=== PATIENT | female | born 1965 | race Caucasian/White ===

== ENCOUNTER 2018-09-12 18:49 | Observation (INO) | payer BC ==
[2018-09-12] MEDS ORDERED: SODIUM CHLORIDE 1,000 ML IV ONE (18:54)
--- NOTE | 2018-09-12 18:54 | PDOC ---
Rapid Medical Evaluation Time Seen by Provider: 09/12/18 18:50 Medical Evaluation: 09/12/18 18:51 I have performed a brief in-person evaluation of this patient. The patient presents with a chief complaint of: sent by for TIA w/u Pertinent physical exam findings: [place] negative. Gait steady I have ordered the following: labs, urine, CTH The patient will proceed to the ED for further evaluation. Discharge Disposition - Diagnosis Dizziness - Referrals - Patient Instructions - Post Discharge Activity
[2018-09-12 19:54] LABS: BASO % 0.6 % (0-2.0); EOS % 0.8 % (0-4.5); HEMATOCRIT 39.4 % (32.4-45.2); HEMOGLOBIN 13.6 GM/dL (10.7-15.3); LYMPH % 31.3 % (8-40); MCH 31.8 pg (25.7-33.7); MCHC 34.7 g/dl (32.0-36.0); MEAN CELL VOLUME 91.8 fl (80-96); MEAN PLT VOLUME 8.9 fl (7.5-11.1); MONO % 8.5 % (3.8-10.2); NEUT % 58.8 % (42.8-82.8); PLATELET COUNT 295 K/MM3 (134-434); RBC 4.29 M/mm3 (3.60-5.2); RDW 13.2 % (11.6-15.6); WHITE BLOOD COUNT 10.1 K/mm3 (4.0-10.0)
--- NOTE | 2018-09-12 20:16 | PDOC ---
History of Present Illness - General Chief Complaint: Lightheaded Stated Complaint: sent by PCP nausea, dizziness Time Seen by Provider: 09/12/18 18:50 History Source: Patient Exam Limitations: No Limitations - History of Present Illness Initial Comments: Pt is a 52 yo F, with PMH of presenting via EMS from [facility] ([facility]) after acute episode of confusion, vertigo, and headache. Pt is accompanied by her . Pt states around 12:30 today (7 hours prior to presentation), she was on the computer and had onset of blurry vision and vertigo like "the room was spinning". The pt states she felt "light-headed" for about 30 seconds, but her states the pt was awake, but would not respond to verbal stimuli for almost 20-30 minutes. He said the pts eyes deviated to the L, and she would continue to turn her head to the L when he would try to get her attention. The pt then responded again, and was able to ambulate but "felt like she was leaning to the L side and didn't feel comfortable turning her head to the R side ". She felt nausea during this time but had no vomiting, and also had a R sided headache. She did not have any LOC or generalized shaking. Pt took was then sleeping intermittently for about 5 hours and last ate some pasta about 3 hours prior to presentation. Pt [facility] who immediately sent her to the ER after hearing the story (Dr. Armendariz). Pt denies any recent fevers/chills, syncope, chest pain, palpitations, SOB, vomiting, abdominal pain, urinary symptoms, diarrhea/constipation, or leg swelling. Bedside BGM 93. Pt states they recently changed her depression medication from Wellbutrin to Aplenzin about 1 week ago, and denies alcohol use. Social: Pt denies any cigarette, alcohol, or drug use. Pt denies any recent travel or sick contacts. Surgical: no relevant history. Family: no relevant history. 09/12/18 21:10 09/12/18 22:47 NIH Stroke Scale - Last Known Well Date/Time & Onset Date Last Known Well: 09/12/18 Time Last Known Well: 12:30 - Initial Evaluation Level of consciousness: Alert Ask patient the month and their age: Answers both correctly Ask patient to open & close eyes; make fist and let go: Obeys both correctly Best gaze (horizontal eye movement): Normal Visual field testing: No visual field loss Facial paresis (Show teeth/raise eyebrows/close eyes tight): Normal symmetrical movement Motor Function: Left Arm: Normal Motor Function: Right Arm: Normal (extends arm 90 (or 45) degrees for 10 seconds without drift Motor Function: Left Leg: Normal (extends leg 30 degrees for 5 seconds without drift) Motor Function: Right Leg: Normal (extends leg 30 degrees for 5 seconds without drift) Limb Ataxia: No ataxia Sensory(Use pinprick test arms,legs,trunk,face/side to side): Normal Best language (Describe picture, name items, read sentences): No Aphasia Dysarthria (read several words): Normal articulation Extinction and Inattention: No abnormality - Total Score NIH Stroke Scale Score: 0 Past History - Travel Traveled outside of the country in the last 30 days: No Close contact w/someone who was outside of country & ill: No - Past Medical History Allergies/Adverse Reactions: Allergies Allergy/AdvReac Type Severity Reaction Status Date / Time No Known Allergies Allergy Verified 09/12/18 18:54 COPD: No Hypercholesterolemia: Yes - Surgical History Cardiac Surgery: No Neurologic Surgery: No - Suicide/Smoking/Psychosocial Hx Smoking History: Never smoked Information on smoking cessation initiated: No Hx Alcohol Use: No Drug/Substance Use Hx: No Review of Systems - Review of Systems Able to Perform ROS?: Yes Is the patient limited Uzbek proficient: No Constitutional: Yes: Weight Stable. No: Chills, Diaphoresis, Fever, Loss of Appetite, Malaise, Weakness HEENTM: Yes: See HPI, Blurred Vision, Other (neglect of R side during symptoms, see HPI). No: Double Vision, Nose Congestion, Tinnitus, Throat Pain, Throat Swelling Respiratory: No: Cough, Orthopnea, Shortness of Breath Cardiac (ROS): No: Chest Pain, Edema, Irregular Heart Rate, Lightheadedness, Palpitations, Syncope, Chest Tightness ABD/GI: No: Constipated, Diarrhea, Nausea, Poor Appetite, Poor Fluid Intake, Vomiting : No: Burning, Dysuria, Pain, Urgency Musculoskeletal: No: Back Pain, Joint Pain, Muscle Pain, Muscle Weakness Integumentary: No: Rash Neurological: Yes: See HPI (neglect of R side, R-sided headache, looking towards and leaning towards L side), Headache, Paresthesia, Unsteady Gait, Ataxia. No: Numbness, Pre-Existing Deficit, Seizure, Tremors, Weakness, Dizziness Psychiatric: Yes: Depression. No: Sleep Pattern Change, Change in Appetite Endocrine: No: Increased Urine, Change in Weight Hematologic/Lymphatic: No: Anemia, Blood Clots ("collection of blood vessels" in liver, stable via MRI), Easy Bleeding, Easy Bruising All Other Systems: Reviewed and Negative *Physical Exam - Vital Signs Last Vital Signs Temp Pulse Resp BP Pulse Ox 98 F 79 18 133/83 97 09/12/18 18:52 09/12/18 18:52 09/12/18 18:52 09/12/18 18:52 09/12/18 18:52 - Physical Exam Comments: Vitals stable, pt afebrile. Pt in NAD, overweight body habitus. Pt alert and oriented x3. jawbone breaker generally intact, muscular strength and sensation intact. Cerebellar exam ( finger to nose, heel to byrnes) WNL, Romberg and gait WNL. No neglect of either side. No midline spinal tenderness, step-offs, or crepitus. Head normocephalic, atraumatic. Eyes PERRLA, EOMI. Oropharynx without erythema or exudates, no LAD b/l. No nasal congestion, hearing intact. Clear heart sounds, S1/S2, no JVD, b/l pedal edema, or heart murmur. Clear lung sounds, no respiratory distress, wheezes, crackles, or accessory muscle use. No abdominal or CVA tenderness to palpation, no rebound, no guarding. Abdomen soft, non-distended, and with normoactive bowel sounds. Skin without jaundice or rash. 09/12/18 20:08 09/12/18 20:42 ED Treatment Course - LABORATORY CBC & Chemistry Diagram: 09/12/18 19:07 09/12/18 19:07 - ADDITIONAL ORDERS Additional order review: Laboratory Results 09/12/18 19:26 POC Glucometer 93 09/12/18 09/12/18 19:26 19:07 RBC 4.29 MCV 91.8 MCHC 34.7 RDW 13.2 MPV 8.9 Neutrophils % 58.8 Lymphocytes % 31.3 Monocytes % 8.5 Eosinophils % 0.8 Basophils % 0.6 POC Glucometer 93 - Medications Given in the ED: ED Medications Discontinued Medications Generic Name Dose Route Start Last Admin Trade Name Misty PRN Reason Stop Dose Admin Sodium Chloride 1,000 mls @ 1,000 mls/hr 09/12/18 18:54 09/12/18 19:40 Normal Saline - IV 09/12/18 19:53 1,000 mls/hr .Q1H ONE Administration Medical Decision Making - Medical Decision Making Pt was seen at bedside, also will be seen by attending Dr. Mohamud. Pt presenting via EMS from [facility] ([facility]) after acute episode of confusion, vertigo, and headache. Pt is accompanied by her . Pt states around 12:30 today (7 hours prior to presentation), she was on the computer and had onset of blurry vision and vertigo like "the room was spinning". The pt states she felt "light-headed" for about 30 seconds, but her states the pt was awake, but would not respond to verbal stimuli for almost 20-30 minutes. He said the pts eyes deviated to the L, and she would continue to turn her head to the L when he would try to get her attention. The pt then responded again, and was able to ambulate but "felt like she was leaning to the L side and didn't feel comfortable turning her head to the R side". She felt nausea during this time but had no vomiting, and also had a R sided headache. She did not have any LOC or generalized shaking. Pt took was then sleeping intermittently for about 5 hours and last ate some pasta about 3 hours prior to presentation. Pt then presented to the [facility]gent [facility] who immediately sent her to the ER after hearing the story (Dr. Armendariz). Pt denies any recent fevers/chills, syncope, chest pain, palpitations, SOB, vomiting, abdominal pain, urinary symptoms, diarrhea/constipation, or leg swelling. Bedside BGM 93. Considering TIA vs new onset seizure (absence) vs hypoglycemic episode vs electroyte abnormalities vs medication side effects (vasoconstriction?) vs head bleed. Ordered work-up including CBC, CMP, lipid panel, cardiac profile, ECG, chest x- ray, UA, non-contrast head CT (r/o ischemia, bleed). Provided 1 L IV NS. Will continue to reassess pt and monitor for symptomatic improvement. ECG: NSR (HR 75), intervals WNL (MS 144, QRS 76, QTc 408). No TWIs or significant ST segment changes. No prior ECG for comparison. 09/12/18 20:58 CBC and CMP WNL Lipid panel elevated (HDL and LDL, although pt not fasting). Trop <.02 test negative -- pt was taken for chest x-ray and CT. 09/12/18 21:04 CT head shows no acute pathology. Paged neurology on-call (Dr. Casanova) and hospitalist team for admission as pt needs further work-up. 09/12/18 22:16 Dr. Casanova suggested starting statin therapy and MRI brain without contrast. Providing 650 mg PO tylenol and 20 mg PO atorvastatin. Pending hospitalist team call-back. 09/12/18 22:[address] Elmore. Pt resting comfortably. 09/12/18 23:12 *DC/Admit/Observation/Transfer Diagnosis at time of Disposition: TIA (transient ischemic attack) - Discharge Dispostion Condition at time of disposition: Stable Decision to Admit order: Yes - Referrals Referrals: Leesa Reyes [Primary Care Provider] - - Patient Instructions - Post Discharge Activity
[2018-09-12 20:20] LABS: ALBUMIN 3.7 g/dl (3.4-5.0); ALK PHOS 72 U/L (45-117); ANION GAP 4 MMOL/L (8-16); BILIRUBIN,TOTAL 0.3 mg/dL (0.2-1); BLOOD UREA NITROGEN 15 mg/dL (7-18); CALCIUM 9.2 mg/dL (8.5-10.1); CHLORIDE 108 mmol/L (98-107); CO2 25 mmol/L (21-32); CREATININE 0.8 mg/dL (0.55-1.3); GLUCOSE,RANDOM 88 mg/dL (74-106); POTASSIUM 4.2 mmol/L (3.5-5.1); SGOT/AST 13 U/L (15-37); SGPT/ALT 27 U/L (13-61); SODIUM 136 mmol/L (136-145); TOT PROT 7.1 g/dl (6.4-8.2)
[2018-09-12 20:32] LABS: PROTHROMBIN TIME (PATIENT) 11.8 SEC (9.7-13.0)
[2018-09-12 20:51] LABS: CHOLESTEROL 248 mg/dL (50-200); HDL CHOLESTEROL 73 mg/dL (40-60); TRIGLYCERIDES 158 mg/dL (0-150)
--- NOTE | 2018-09-12 21:01 | PDOC ---
Documentation entered by Janes Christianson SCRIBE, acting as scribe for Danny Mohamud MD. Attending Attestation - Resident Resident Name: Renetta Raines - ED Attending Attestation I have performed the following: I have examined & evaluated the patient, The case was reviewed & discussed with the resident, I agree w/resident's findings & plan, Exceptions are as noted - HPI HPI: 09/12/18 20:38 Patient is a 52 year old female with a significant past medical history of who presents to the ED with complaints of dizziness. Patient reports being sent to the ED for further evaluation by urgent care after experiencing an episode of confusion with associated dizziness that occurred earlier today at noon. She reports beginning to feel like the room is spinning before experiencing confusion that she states felt like 30 seconds but was told by her , it was 30 minutes. Pt's also states her eyes seemed to be deviating to the left and she would not look to her right. Patient reports attempting to walk shortly after and noticed she was favoring her left side, stating it felt wrong to walk towards the right side. Denies chest pain, sob. Deneis nausea, vomiting. Denies fevers, chills. Denies diarrhea, constipation. Denies dysuria, hematuria. Denies contact with sick individuals, out of state travelling. Denies any other symptoms. Allergies: None Social history: No smoking. No illicit drugs. No alcohol. Surgical history: None PMD: Dr. Reyes - Physicial Exam PE: 09/12/18 20:59 agree with resident exam - Medical Decision Making 09/12/18 20:59 52yo F presents to the ED with a resolved episode of confusion, eye deviation, gait instability 7 hours prior to arrival to ED. Vitals wnl Exam wnl, NIHSS 0 DDx includes TIA vs partial seizure vs atypical migraine vs medication side effect (pt started on new depression medication 1 week ago) Plan for labs, CTH, anticipate admission 09/12/18 22:10 CTH neg, labs wnl. Per neuro, rec MRI, admission Pt admitted to hospital for further mgmt/dispo Case discussed in detail with admitting physician including history, physical exam and ancillary studies. Admitting physician has assumed care for the patient, will follow all pending diagnostics and will complete the evaluation and treatment. Danny Mohamud MD: This documentation has been prepared by the Sammy mckeon Matthew, SCRIBE, under my direction and personally reviewed by me in its entirety. I confirm that the documentation accurately reflects all work, treatment, procedures, and medical decision making performed by me.
[2018-09-12 22:31] LABS: EPI CELLS 1.2 /HPF (0-5/HPF); HCG,QUALITATIVE URINE Negative; URINE APPEARANCE CLEAR; URINE BACTERIA 46.7 /hpf (NEGATIVE); URINE BILIRUBIN NEGATIVE (NEGATIVE); URINE CASTS 0 /lpf (0-8); URINE COLOR YELLOW; URINE GLUCOSE (UA) NEGATIVE (NEGATIVE); URINE KETONE NEGATIVE (NEGATIVE); URINE LEUK ESTERASE TRACE (NEGATIVE); URINE NITRITE NEGATIVE (NEGATIVE); URINE PROTEIN NEGATIVE (NEGATIVE); URINE RBC 3 /hpf (0-4); URINE UROBILINOGEN 0.2 mg/dL (0.2-1.0); URINE WBC 0 /hpf (0-5)
[2018-09-12] MEDS ORDERED: ACETAMINOPHEN 325 MG TABLET (FP) PO ONE (22:34)
[2018-09-12] MEDS ORDERED: ATORVASTATIN CA 20 MG TABLET (FP) PO ONE (22:38)
[2018-09-12] MEDS ORDERED: ACETAMINOPHEN 325 MG TABLET (FP) ONE (22:39)
[2018-09-12] MEDS ORDERED: ATORVASTATIN CA 10 MG TABLET (FP) ONE (22:55)
[2018-09-13] MEDS ORDERED: ASPIRIN 81 MG CHEWABLE TABLETS PO ONE (00:30)
--- NOTE | 2018-09-13 00:54 | HP ---
CHIEF COMPLAINT: dizziness PCP: HISTORY OF PRESENT ILLNESS: 52 y/o F with PMH asthma, depression, HLD, childhood sz, who presented to the ED for dizziness which occurred starting at 12:30pm yesterday afternoon. Pt was sitting at her desk, typing on her computer when she suddenly felt warm, diaphoretic, and as if she was about to vomit. States that she subsequently ambulated to and from the bathroom, however at this point she had forgotten what had occurred next. was with her at the time and told her that during this time, she was not verbally responsive for approx five minutes, after which time, pt came to. Afterward, the pt was very somnolent and had a generalized STINSON. Additionally, she states that when she looked at her , she could only see him from the L side of her visual field, with neglect on the right. Due to increasing concern, he decided to take her to [facility] for further evaluation and she was referred to R for further evaluation. During my examination, pt endorses mild dizziness and vertigo when standing. Denies fever, chills, SOB, recent illnesses, or changes in urinary or bowel function. Did not have bowel or bladder incontinence during the episode. States that she currently hasn't been dx with sz, however had a history as a child. Had one grand-mal, and one febrile dz. Was on phenobarbitol until age 7. At baseline, pt lives with family at home and ambulates independently. ER course was notable for: (1) tylenol (2) lipitor 20 mg x 1 (3) IV NS (4) NIHSS 0. 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 Smoking: denies Alcohol: denies Drugs: denies Family History: mom- glioblastoma, father, grandmother - thyroid removed Allergies No Known Allergies Allergy (Verified 09/12/18 18:54) HOME MEDICATIONS: meds will need to be rec with [facility] REVIEW OF SYSTEMS CONSTITUTIONAL: Absent: fever, chills, diaphoresis, generalized weakness, malaise, loss of appetite, weight change HEENT: Absent: rhinorrhea, nasal congestion, throat pain, throat swelling, difficulty swallowing, mouth swelling, ear pain, eye pain, visual changes CARDIOVASCULAR: Absent: chest pain, syncope, palpitations, irregular heart rate, lightheadedness , peripheral edema RESPIRATORY: Absent: cough, shortness of breath, dyspnea with exertion, orthopnea, wheezing, stridor, hemoptysis GASTROINTESTINAL: Absent: abdominal pain, abdominal distension, nausea, vomiting, diarrhea, constipation, melena, hematochezia GENITOURINARY: Absent: dysuria, frequency, urgency, hesitancy, hematuria, flank pain, genital pain MUSCULOSKELETAL: Absent: myalgia, arthralgia, joint swelling, back pain, neck pain SKIN: Absent: rash, itching, pallor HEMATOLOGIC/IMMUNOLOGIC: Absent: easy bleeding, easy bruising, lymphadenopathy, frequent infections ENDOCRINE: Absent: unexplained weight gain, unexplained weight loss, heat intolerance, cold intolerance NEUROLOGIC: +headache, dizziness Absent: focal weakness or paresthesias, dizziness, unsteady gait, seizure, mental status changes, bladder or bowel incontinence PSYCHIATRIC: Absent: anxiety, depression, suicidal or homicidal ideation, hallucinations. PHYSICAL EXAMINATION Vital Signs - 24 hr 09/12/18 18:52 Temperature 98 F Pulse Rate 79 Respiratory 18 Rate Blood Pressure 133/83 O2 Sat by Pulse 97 Oximetry (%) GENERAL: Pleasant. Awake, alert, and fully oriented, in no acute distress. HEAD: Normal with no signs of trauma. EYES: Pupils equal, round and reactive to light, extraocular movements intact, sclera anicteric, conjunctiva clear. EARS, NOSE, THROAT: Ears normal, nares patent, oropharynx clear without exudates. Moist mucous membranes. NECK: Normal range of motion, supple LUNGS: Breath sounds equal, clear to auscultation bilaterally. No wheezes, and no crackles. No accessory muscle use. HEART: Regular rate and rhythm, normal S1 and S2 without murmur, rub or gallop. ABDOMEN: Soft, nontender, not distended, normoactive bowel sounds, no guarding, no rebound, no masses. MUSCULOSKELETAL: 5/5 motor strength UE, LE. 2+ reflexes patellar, bicep LOWER EXTREMITIES: 2+ pt pulses, warm, well-perfused. No calf tenderness. No peripheral edema. NEUROLOGICAL: Cranial nerves II-XII intact. sensation intact. +mild horizontal nystagmus. no cerebellar deficits. PSYCHIATRIC: Cooperative. Good eye contact. SKIN: Warm, dry Laboratory Tests 09/12/18 09/12/18 19:07 19:07 WBC 10.1 H Sodium 136 Potassium 4.2 Chloride 108 H Carbon Dioxide 25 BUN 15 Creatinine 0.8 Triglycerides 158 H Cholesterol 248 H Total LDL Cholesterol 157 H HDL Cholesterol 73 H CTH: without acute abnormality CXR: without acute processes. official report pending ASSESSMENT/PLAN: 52 y/o F with PMH asthma, depression, HLD, childhood sz, who presented to the ED for dizziness which occurred starting at 12:30pm yesterday afternoon. #Dizziness, unresponsive episode, hemineglect -could be 2/2 TIA, seizure, or complex migraine -will tx with asa, high intensity statin- lipitor 80 qd -f/u ECHO, carotid duplex, brain MRI, eeg -neurochecks q4h, sz precautions -able to swallow, will start diet -PT as needed -tele monitoring -Neuro consult: Dr. Casanova #HLD -lipid panel complete: LDL 157 -started on high intensity statin #asthma -currently not in exacerbation -nebs PRN #F/E/N no IVF req at this time continue to follow lytes cholesterol controlled/low fat diet. able to swallow #PPX DVT: SCD's, early ambulation expect short stay #Dispo tele-obs anticipate d/c after brain MRI, echo, carotid, eeg and additional neuro eval and recs. Visit type - Emergency Visit Emergency Visit: Yes ED Registration Date: 09/12/18 Care time: The patient presented to the Emergency Department on the above date and was hospitalized for further evaluation of their emergent condition. - New Patient This patient is new to me today: Yes Date on this admission: 09/13/18 - Critical Care Critical Care patient: No
--- NOTE | 2018-09-13 01:16 | PN ---
Teaching Attending Note Name of Resident: Ann Caceres ATTENDING PHYSICIAN STATEMENT I saw and evaluated the patient. I reviewed the resident's note and discussed the case with the resident. I agree with the resident's findings and plan as documented. SUBJECTIVE:AMS She is a very pleasant 52 Y/O F W HLD, Chronic STINSON and HX of childhood seizure , depression, P/W an episode of sudden onset, crescendo decrescendo, no trigger no aggravaitng, no alleviating factor episode of AMS and weakness. She states that she was in her [facility] around 8 hours prior to ED visit, working on her computer when she developed episode of Nausea, feeling hot and diaphoretic and went to the bathroom while walking to the bathroom she was weak, leaning on her , oer her she had been unresponsive with open eyes for couple of minutes, eyes were not folllowing him, no GM seizure symptoms. When she became conscious 5 minutes later she had a STINSON and went to sleep. As she still was feeling off balance she came to the ED. She dose Yoga and pilates but no trauma to the neck and no poses that would cause trauma to the neck. She states that symptoms were different from her panic attacks in the past Has not have had seizure since childhood. seizures( 2 times, one febrile and 1 non febrile seizure) She has chronic HAs of multiple different types, some of which are with photophoia and on the R side of the face but has never been with weakness and AMS as today. OBJECTIVE: in no distress talks in full sentences MMM cvs:s1s2, regular CTAB ABD: bs+ NTND A&OX3, NO FOCAL NEUROLOGIC DEFICIT( WEARS GLASSES) HCT; with no bleeding ASSESSMENT AND PLAN: DDx: TIA: has RF: age and dispilidemia Seizure: that she was unresponsive and felt tired after that andhas HX of seizure in childhood, Will bubba EEG complex STINSON Less likely panic attack Will give ASA, statin, MRI TTE CAROTID DUPLEX WITH FOCUS ON POST CIRCULATION rest of the management per HS note
[2018-09-13] MEDS ORDERED: ASPIRIN 81 MG CHEWABLE TABLETS ONE (01:57)
[2018-09-13] MEDS ORDERED: ALBUTEROL SO4 8 GM HFA INHALER IH PRN (02:06)
[2018-09-13 06:58] VITALS: BMI 28.5
[2018-09-13 07:24] LABS: HEMATOCRIT 36.9 % (32.4-45.2); HEMOGLOBIN 12.7 GM/dL (10.7-15.3); MCH 31.5 pg (25.7-33.7); MCHC 34.3 g/dl (32.0-36.0); MEAN CELL VOLUME 91.8 fl (80-96); MEAN PLT VOLUME 8.6 fl (7.5-11.1); PLATELET COUNT 262 K/MM3 (134-434); RBC 4.02 M/mm3 (3.60-5.2); WHITE BLOOD COUNT 8.1 K/mm3 (4.0-10.0)
[2018-09-13 07:44] LABS: ANION GAP 3 MMOL/L (8-16); BLOOD UREA NITROGEN 15 mg/dL (7-18); CALCIUM 8.9 mg/dL (8.5-10.1); CHLORIDE 112 mmol/L (98-107); CO2 24 mmol/L (21-32); CREATININE 0.7 mg/dL (0.55-1.3); GLUCOSE,RANDOM 94 mg/dL (74-106); MAGNESIUM 2.1 mg/dL (1.8-2.4); PHOSPHOROUS 3.1 mg/dL (2.5-4.9); POTASSIUM 4.5 mmol/L (3.5-5.1); SODIUM 138 mmol/L (136-145)
--- NOTE | 2018-09-13 08:42 | CONSULT ---
Consult - text type - Consultation Consultation Note: Neurology CHIEF COMPLAINT: dizziness HISTORY OF PRESENT ILLNESS: 52 y/o F with PMH asthma, depression, HLD, childhood sz, who presented to the ED for dizziness which occurred starting at 12:30pm day prior to admission. Pt reportedly was sitting at her desk, typing on her computer when she suddenly felt warm, diaphoretic, and as if she was about to vomit. States that she subsequently ambulated to and from the bathroom, however at this point she had forgotten what had occurred next. was with her at the time and told her that during this time, she was not verbally responsive for approx five minutes, after which time, pt came to. Afterward, the pt was very somnolent and had a generalized STINSON. Additionally, she stated that when she looked at her , she could only see him from the L side of her visual field, with neglect on the right. Due to increasing concern, he decided to take her to [facility] for further evaluation and she was referred to R for further evaluation. CT head completed in ER and without abnormalities. Currently reports being asymptomatic and admitted for further evaluation. Spoke to ER overnight and LDL in 150's, advised Statin, which was given as 80mg, adjusted down to 20mg as statin niave and does not require max dose. Awaiting MRI brain. Carotids reviewed and demonstrated 60-79% stenosis of R ICA, will order CTA to further evalute. Though h/o febrile seizure (normal variant in child), no convulsions, and not consistent with seizure event as child. EEG d/inessa, can be done as outpatient. 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 Smoking: denies Alcohol: denies Drugs: denies Family History: mom- glioblastoma, father, grandmother - thyroid removed Allergies No Known Allergies Allergy (Verified 09/12/18 18:54) HOME MEDICATIONS: meds will need to be rec with [facility] REVIEW OF SYSTEMS CONSTITUTIONAL: Absent: fever, chills, diaphoresis, generalized weakness, malaise, loss of appetite, weight change HEENT: Absent: rhinorrhea, nasal congestion, throat pain, throat swelling, difficulty swallowing, mouth swelling, ear pain, eye pain, visual changes CARDIOVASCULAR: Absent: chest pain, syncope, palpitations, irregular heart rate, lightheadedness , peripheral edema RESPIRATORY: Absent: cough, shortness of breath, dyspnea with exertion, orthopnea, wheezing, stridor, hemoptysis GASTROINTESTINAL: Absent: abdominal pain, abdominal distension, nausea, vomiting, diarrhea, constipation, melena, hematochezia GENITOURINARY: Absent: dysuria, frequency, urgency, hesitancy, hematuria, flank pain, genital pain MUSCULOSKELETAL: Absent: myalgia, arthralgia, joint swelling, back pain, neck pain SKIN: Absent: rash, itching, pallor HEMATOLOGIC/IMMUNOLOGIC: Absent: easy bleeding, easy bruising, lymphadenopathy, frequent infections ENDOCRINE: Absent: unexplained weight gain, unexplained weight loss, heat intolerance, cold intolerance NEUROLOGIC: +headache, dizziness Absent: focal weakness or paresthesias, dizziness, unsteady gait, seizure, mental status changes, bladder or bowel incontinence PSYCHIATRIC: Absent: anxiety, depression, suicidal or homicidal ideation, hallucinations. PHYSICAL EXAMINATION Vital Signs Period Temp Pulse Resp BP Sys/Cornejo Pulse Ox Last 24 Hr 97.9 F-98.0 F 79-80 16-18 123-142/72-83 97-100 GENERAL: Pleasant. Awake, alert, and fully oriented, in no acute distress. HEAD: Normal with no signs of trauma. EYES: Pupils equal, round and reactive to light, extraocular movements intact, sclera anicteric, conjunctiva clear. EARS, NOSE, THROAT: Ears normal, nares patent, oropharynx clear without exudates. Moist mucous membranes. NECK: Normal range of motion, supple LUNGS: Breath sounds equal, clear to auscultation bilaterally. No wheezes, and no crackles. No accessory muscle use. HEART: Regular rate and rhythm, normal S1 and S2 without murmur, rub or gallop. ABDOMEN: Soft, nontender, not distended, normoactive bowel sounds, no guarding, no rebound, no masses. MUSCULOSKELETAL: 5/5 motor strength UE, LE. 2+ reflexes patellar, bicep LOWER EXTREMITIES: 2+ pt pulses, warm, well-perfused. No calf tenderness. No peripheral edema. NEUROLOGICAL: Cranial nerves II-XII intact. sensation intact. Strength 5/5 in UE and LE. no cerebellar deficits. PSYCHIATRIC: Cooperative. Good eye contact. SKIN: Warm, dry Laboratory Tests 04/15/19 04/15/19 19:07 19:07 WBC 10.1 H Sodium 136 Potassium 4.2 Chloride 108 H Carbon Dioxide 25 BUN 15 Creatinine 0.8 Triglycerides 158 H Cholesterol 248 H Total LDL Cholesterol 157 H HDL Cholesterol 73 H CTH: without acute abnormality CXR: without acute processes. official report pending ASSESSMENT/PLAN: 52 y/o F with PMH asthma, depression, HLD, childhood sz, who presented to the ED for dizziness which occurred starting at 12:30pm day prior to admission. Pt reportedly was sitting at her desk, typing on her computer when she suddenly felt warm, diaphoretic, and as if she was about to vomit. States that she subsequently ambulated to and from the bathroom, however at this point she had forgotten what had occurred next. was with her at the time and told her that during this time, she was not verbally responsive for approx five minutes, after which time, pt came to. Afterward, the pt was very somnolent and had a generalized STINSON. Additionally, she stated that when she looked at her , she could only see him from the L side of her visual field, with neglect on the right. Due to increasing concern, he decided to take her to [facility] for further evaluation and she was referred to R for further evaluation. CT head completed in ER and without abnormalities. Currently reports being asymptomatic and admitted for further evaluation. Spoke to ER overnight and LDL in 150's, advised Statin, which was given as 80mg, adjusted down to 20mg as statin niave and does not require max dose. Awaiting MRI brain. Carotids reviewed and demonstrated 60-79% stenosis of R ICA, will order CTA to further evalute. Though h/o febrile seizure (normal variant in child), no convulsions, and not consistent with seizure event as child. EEG d/inessa, can be done as outpatient. If MRI negative, can be discharged and follow up outpatient.
--- NOTE | 2018-09-13 09:55 | PN ---
Progress Note, Physician - Current Medication List Current Medications: Active Medications Albuterol Sulfate (Ventolin Hfa Inhaler -) 2 puff IH Q6H PRN PRN Reason: ASTHMA Aspirin (Asa -) 81 mg PO DAILY [facility] Atorvastatin Calcium (Lipitor -) 20 mg PO HS [facility] Non-Formulary Medication (Bupropion Hbr [Aplenzin]) 1 tab PO DAILY [facility] Pantoprazole Sodium (Protonix -) 40 mg PO DAILY [facility] Last Admin: 09/13/18 09:46 Dose: 40 mg - Objective Vital Signs: Vital Signs Temperature 97.9 F 09/13/18 06:49 Pulse Rate 79 09/13/18 06:49 Respiratory Rate 16 09/13/18 06:49 Blood Pressure 142/79 09/13/18 06:49 O2 Sat by Pulse Oximetry (%) 100 09/13/18 06:00 Labs: CBC, BMP 09/13/18 07:05 09/13/18 07:05 INR, PTT INR 1.00 (0.83-1.09) 09/12/18 19:07
--- NOTE | 2018-09-13 09:56 | CON.CARD ---
Consult Consult Specialty:: Cardiology Referred by:: Hospitalist Reason for Consultation:: Cardiac evaluation - History of Present Illness Chief Complaint: Altered mental status, transient History of Present Illness: Patient is a 52 year old female with underlying history of hypercholesterolemia who presents with an episode of altered mental status yesterday when she was found by her to be awake but not responding to him and just staring inappropriately. She does not remember the event. She then regained her memory and slept for few hours before going to the urgent center for further evaluation. She complained of headache. She denied chest pain, SOB or palpitations. She was referred for admission from the urgent care center. Currently, she denies chest pain, SOB or palpitations. She denies paroxysmal nocturnal dyspnea or orthopnea. She denies fever or chills. She denies nausea, vomiting, diarrhea or abdominal pain. She denies headache or lightheadedness. Denies history of syncope. - History Source History Provided By: Patient, Family Member, Medical Record Limitations to Obtaining History: No Limitations - Past Medical History Cardio/Vascular: Yes: Hyperlipdemia ...: No Psych: Yes: Depression - Past Surgical History Past Surgical History: Yes: - Alcohol/Substance Use Hx Alcohol Use: Yes (SOCIAL) History of Substance Use: reports: None - Smoking History Smoking history: Never smoked Have you smoked in the past 12 months: No Home Medications - Allergies Allergies/Adverse Reactions: Allergies Allergy/AdvReac Type Severity Reaction Status Date / Time No Known Allergies Allergy Verified 09/12/18 18:54 - Home Medications Home Medications: Ambulatory Orders Acyclovir [Zovirax -] 1 tab PO TID PRN MDD for one week 09/13/18 Albuterol Sulfate [Proair Hfa] 1 - 2 puff PO Q6H PRN 09/13/18 Bupropion HBr [Aplenzin] 1 tab PO DAILY 09/13/18 Cetirizine HCl [Zyrtec -] 10 mg PO DAILY PRN 09/13/18 Fluoxetine HCl [Prozac] 1 tab PO DAILY 09/13/18 Fluoxetine HCl [Prozac] 1 tab PO DAILY 09/13/18 Fluticasone Propionate [24 Hour Allergy] 1 spray IH DAILY 09/13/18 Omeprazole 2 tab PO DAILY 09/13/18 Review of Systems - Review of Systems Constitutional: denies: Chills, Fever Cardiovascular: denies: Chest Pain, Palpitations, Shortness of Breath Respiratory: denies: Cough, Hemoptysis, Orthopnea, PND, SOB, SOB on Exertion Gastrointestinal: denies: Abdominal Pain, Constipation, Diarrhea, Melena, Nausea , Rectal Bleeding, Vomiting Genitourinary: denies: Dysuria, Hematuria Musculoskeletal: denies: Back Pain, Joint Pain Neurological: denies: Dizziness, Headache, Seizure, Syncope Vital Signs: Vital Signs Temperature 97.9 F 09/13/18 06:49 Pulse Rate 79 09/13/18 06:49 Respiratory Rate 16 09/13/18 06:49 Blood Pressure 142/79 09/13/18 06:49 O2 Sat by Pulse Oximetry (%) 100 09/13/18 06:00 Eyes: Yes: PERRL HENT: Yes: Atraumatic Neck: Yes: Supple Respiratory: Yes: CTA Bilaterally Gastrointestinal: Yes: Normal Bowel Sounds, Soft. No: Tenderness Cardiovascular: Yes: Regular Rate and Rhythm JVD: No PMI: Non-Displaced Heart Sounds: Yes: S1, S2. No: Gallop Murmur: No: Systolic Murmur, Diastolic Murmur Edema: No - Other Data Labs, Other Data: CBC, BMP 09/13/18 07:05 09/13/18 07:05 INR, PTT INR 1.00 (0.83-1.09) 09/12/18 19:07 Troponin, BNP 09/12/18 09/13/18 19:07 07:05 Troponin I < 0.02 < 0.02 NSR with normal ECG Echo: Pending Assessment/Plan 1. Clinical presentation suggests TIA 2. Hypercholesterolemia 3. Carotid artery disease 4. History of depression PLAN: 1. Neurology evaluation in progress. Await brain MRI 2. Neck CTA to further check carotid stenosis 3. Echocardiography to assess LV/RV and valvular function 4. ASA 81 mg QD and Lipitor 20 mg QHS. Follow lipid panel Further plans are to follow Dexter Chavez MD
[2018-09-13] MEDS ORDERED: BUPROPION HBR PO SCH (10:00)
[2018-09-13] MEDS ORDERED: PANTOPRAZOLE 40 MG TABLET (FP) PO SCH (10:00)
[2018-09-13] MEDS ORDERED: CLOPIDOGREL BISULFATE 75 MG TABLET (FP) PO SCH (10:00)
--- NOTE | 2018-09-13 11:05 | EKG ---
Test Reason : Blood Pressure : / mmHG Vent. Rate : 075 BPM Atrial Rate : 075 BPM P-R Int : 144 ms QRS Dur : 076 ms QT Int : 366 ms P-R-T Axes : 062 025 061 degrees QTc Int : 408 ms NORMAL SINUS RHYTHM POSSIBLE LEFT ATRIAL ENLARGEMENT LOW VOLTAGE QRS BORDERLINE ECG NO PREVIOUS ECGS AVAILABLE Confirmed by MD Tobias, Wan ([id number]) on 09/13/2018 11:05:44 AM Referred By: Confirmed By:Wan Collado MD
--- NOTE | 2018-09-13 11:10 | EKG ---
Test Reason : Blood Pressure : / mmHG Vent. Rate : 076 BPM Atrial Rate : 076 BPM P-R Int : 148 ms QRS Dur : 074 ms QT Int : 370 ms P-R-T Axes : 065 020 065 degrees QTc Int : 416 ms NORMAL SINUS RHYTHM NORMAL ECG WHEN COMPARED WITH ECG OF 12-SEP-2018 20:10, NO SIGNIFICANT CHANGE WAS FOUND Confirmed by MD Tobias, Wan ([id number]) on 09/13/2018 11:09:50 AM Referred By: Terri MENDEZ Confirmed By:Wan Collado MD
[2018-09-13 11:38] VITALS: TEMP 98.2
--- NOTE | 2018-09-13 11:57 | ECHO ---
Name: LESSER, COLLEEN Exam:Adult Echocardiogram Study Date: 09/13/2018 09:01 AM Age: 52 yrs Reason For Study: R/O TIA Height: 62 in Weight: 155 lb BSA: 1.7 m2 MMode/2D Measurements & Calculations IVSd: 0.97 cm LA dimension: 3.1 cm LVIDd: 3.0 cm ACS: 1.9 cm LVIDs: 2.2 cm LVPWd: 1.2 cm EDV(Teich): 35.8 ml LVOT diam: 1.9 cm ESV(Teich): 15.6 ml RV S Jorge Alberto: 13.1 cm/sec Doppler Measurements & Calculations MV E max jorge alberto: 99.8 cm/sec TV V2 max: 172.2 cm/sec MV A max jorge alberto: 68.0 cm/sec TV max P.1 mmHg MV E/A: 1.5 TV V2 mean: 144.9 cm/sec TV mean P.6 mmHg TV V2 VTI: 47.7 cm Med Peak E' Jorge Alberto: 8.9 cm/sec Med E/e': 11.3 Lat Peak E' Jorge Alberto: 9.9 cm/sec Lat E/e': 10.0 Procedure A complete two-dimensional transthoracic echocardiogram was performed (2D, M-mode, Doppler and color flow Doppler). Left Ventricle The left ventricular size, thickness and function are normal. Ejection Fraction = 55%. Left Ventricul ar Filling pattern is normal for age. The transmitral spectral Doppler flow pattern is normal for age. Right Ventricle The right ventricle is normal in size and function. Atria Normal left and right atrial size and function. Mitral Valve The mitral valve is normal in structure and function. Tricuspid Valve The tricuspid valve is normal in structure and function. There is mild tricuspid regurgitation. Right ventricular systolic pressure is normal. Aortic Valve The aortic valve is normal in structure and function. Mild aortic regurgitation. Pulmonic Valve The pulmonic valve is normal in structure and function. Great Vessels The aortic root is normal size. Pericardium/Pleura There is no pericardial effusion. Interpretation Summary This was essentially a normal study. Kishan Chen 09/13/2018 11:57 AM
--- NOTE | 2018-09-13 13:53 | PN ---
Physical Exam: SUBJECTIVE: Patient seen and examined OBJECTIVE: Vital Signs Period Temp Pulse Resp BP Sys/Cornejo Pulse Ox Last 24 Hr 97.9 F-98.2 F 79-80 16-18 123-142/68-83 97-100 GENERAL: The patient is awake, alert, and fully oriented, in no acute distress. HEAD: Normal with no signs of trauma. EYES: PERRL, extraocular movements intact, sclera anicteric, conjunctiva clear. No ptosis. ENT: Ears normal, nares patent, oropharynx clear without exudates, moist mucous membranes. NECK: Trachea midline, full range of motion, supple. LUNGS: Breath sounds equal, clear to auscultation bilaterally, no wheezes, no crackles, no accessory muscle use. HEART: Regular rate and rhythm, S1, S2 without murmur, rub or gallop. ABDOMEN: Soft, nontender, nondistended, normoactive bowel sounds, no guarding, no rebound, no hepatosplenomegaly, no masses. EXTREMITIES: 2+ pulses, warm, well-perfused, no edema. NEUROLOGICAL: Cranial nerves II through XII grossly intact. Normal speech, gait not observed. PSYCH: Normal mood, normal affect. SKIN: Warm, dry, normal turgor, no rashes or lesions noted Laboratory Results - last 24 hr 09/12/18 09/12/18 09/12/18 19:07 19:07 19:07 WBC 10.1 H RBC 4.29 Hgb 13.6 Hct 39.4 MCV 91.8 MCH 31.8 MCHC 34.7 RDW 13.2 Plt Count 295 MPV 8.9 Absolute Neuts (auto) 5.9 Neutrophils % 58.8 Lymphocytes % 31.3 Monocytes % 8.5 Eosinophils % 0.8 Basophils % 0.6 Nucleated RBC % 0 PT with INR 11.80 INR 1.00 Sodium 136 Potassium 4.2 Chloride 108 H Carbon Dioxide 25 Anion Gap 4 L BUN 15 Creatinine 0.8 Creat Clearance w eGFR 75.62 POC Glucometer Random Glucose 88 Calcium 9.2 Phosphorus Magnesium Total Bilirubin 0.3 AST 13 L ALT 27 Alkaline Phosphatase 72 Creatine Kinase 64 Troponin I < 0.02 Total Protein 7.1 Albumin 3.7 Triglycerides 158 H Cholesterol 248 H Total LDL Cholesterol 157 H HDL Cholesterol 73 H Serum , Qual Urine Color Urine Appearance Urine pH Ur Specific [place] Urine Protein Urine Glucose (UA) Urine Ketones Urine Blood Urine Nitrite Urine Bilirubin Urine Urobilinogen Ur Leukocyte Esterase Urine WBC (Auto) Urine RBC (Auto) Urine Casts (Auto) U Epithel Cells (Auto) Urine Bacteria (Auto) Urine HCG, Qual Blood Type Antibody Screen 09/12/18 09/12/18 09/12/18 19:07 19:26 19:54 WBC RBC Hgb Hct MCV MCH MCHC RDW Plt Count MPV Absolute Neuts (auto) Neutrophils % Lymphocytes % Monocytes % Eosinophils % Basophils % Nucleated RBC % PT with INR INR Sodium Potassium Chloride Carbon Dioxide Anion Gap BUN Creatinine Creat Clearance w eGFR POC Glucometer 93 Random Glucose Calcium Phosphorus Magnesium Total Bilirubin AST ALT Alkaline Phosphatase Creatine Kinase Troponin I Total Protein Albumin Triglycerides Cholesterol Total LDL Cholesterol HDL Cholesterol Serum , Qual Negative Urine Color Urine Appearance Urine pH Ur Specific [place] Urine Protein Urine Glucose (UA) Urine Ketones Urine Blood Urine Nitrite Urine Bilirubin Urine Urobilinogen Ur Leukocyte Esterase Urine WBC (Auto) Urine RBC (Auto) Urine Casts (Auto) U Epithel Cells (Auto) Urine Bacteria (Auto) Urine HCG, Qual Blood Type Cancelled Antibody Screen Cancelled 09/12/18 09/13/18 09/13/18 21:00 07:05 07:05 WBC 8.1 RBC 4.02 Hgb 12.7 Hct 36.9 MCV 91.8 MCH 31.5 MCHC 34.3 RDW 13.0 Plt Count 262 MPV 8.6 Absolute Neuts (auto) Neutrophils % Lymphocytes % Monocytes % Eosinophils % Basophils % Nucleated RBC % PT with INR INR Sodium 138 Potassium 4.5 Chloride 112 H Carbon Dioxide 24 Anion Gap 3 L BUN 15 Creatinine 0.7 Creat Clearance w eGFR 88.22 POC Glucometer Random Glucose 94 Calcium 8.9 Phosphorus 3.1 Magnesium 2.1 Total Bilirubin AST ALT Alkaline Phosphatase Creatine Kinase Troponin I < 0.02 Total Protein Albumin Triglycerides Cholesterol Total LDL Cholesterol HDL Cholesterol Serum , Qual Urine Color Yellow Urine Appearance Clear Urine pH 7.0 Ur Specific [place] 1.005 L Urine Protein Negative Urine Glucose (UA) Negative Urine Ketones Negative Urine Blood Negative Urine Nitrite Negative Urine Bilirubin Negative Urine Urobilinogen 0.2 Ur Leukocyte Esterase Trace Urine WBC (Auto) 0 Urine RBC (Auto) 3 Urine Casts (Auto) 0 U Epithel Cells (Auto) 1.2 Urine Bacteria (Auto) 46.7 Urine HCG, Qual Negative Blood Type Antibody Screen Active Medications Home Medications Medication Instructions Recorded Acyclovir [Zovirax -] 1 tab PO TID PRN MDD for one week 09/13/18 Albuterol Sulfate [Proair Hfa] 1 - 2 puff PO Q6H PRN 09/13/18 Bupropion HBr [Aplenzin] 1 tab PO DAILY 09/13/18 Cetirizine HCl [Zyrtec -] 10 mg PO DAILY PRN 09/13/18 Fluoxetine HCl [Prozac] 1 tab PO DAILY 09/13/18 Fluoxetine HCl [Prozac] 1 tab PO DAILY 09/13/18 Fluticasone Propionate [24 Hour 1 spray IH DAILY 09/13/18 Allergy] Omeprazole 2 tab PO DAILY 09/13/18 Current Medications Albuterol Sulfate (Ventolin Hfa Inhaler -) 2 puff IH Q6H PRN PRN Reason: ASTHMA Aspirin (Asa -) 81 mg PO DAILY [facility] Atorvastatin Calcium (Lipitor -) 20 mg PO HS [facility] Non-Formulary Medication (Bupropion Hbr [Aplenzin]) 1 tab PO DAILY [facility] Pantoprazole Sodium (Protonix -) 40 mg PO DAILY [facility] Last Admin: 09/13/18 09:46 Dose: 40 mg CTH: No acute pathology CXR: without acute processes. official report pending ASSESSMENT/PLAN: 52 y/o F with PMH asthma, depression, HLD, childhood sz, who presented to the ED for dizziness which occurred starting at 12:30pm yesterday afternoon. #Dizziness, unresponsive episode, hemineglect -could be 2/2 TIA, seizure, or complex migraine -will tx with asa, high intensity statin- lipitor 80 qd -f/u ECHO, carotid duplex, brain MRI, eeg -neurochecks q4h, sz precautions -able to swallow, will start diet -PT as needed -tele monitoring -Neuro consult: Dr. Casanova #HLD -lipid panel complete: LDL 157 -started on high intensity statin #asthma -currently not in exacerbation -nebs PRN #F/E/N no IVF req at this time continue to follow lytes cholesterol controlled/low fat diet. able to swallow #PPX DVT: SCD's, early ambulation expect short stay #Dispo tele-obs anticipate d/c after brain MRI, echo, carotid, eeg and additional neuro eval and recs.
[2018-09-13 14:42] VITALS: BP 110/75; PULSE 84
--- NOTE | 2018-09-13 15:58 | PN ---
Teaching Attending Note Name of Resident: Moi Ramirez ATTENDING PHYSICIAN STATEMENT I saw and evaluated the patient. I reviewed the resident's note and discussed the case with the resident. I agree with the resident's findings and plan as documented. SUBJECTIVE:asymptomatic now. 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 can not recall if she did not eat prior to it. denies CP , SOB, fever, chills, N/V/C/D, dizzyness, N/V/C/D OBJECTIVE: Last Vital Signs Temp Pulse Resp BP Pulse Ox 98.2 F 84 16 110/75 100 09/13/18 14:00 09/13/18 14:00 09/13/18 14:00 09/13/18 14:00 09/13/18 11:00 General NAD ASSESSMENT AND PLAN: 52yo F wtih PMH childhood seizures, STINSON, depression presented to the ER with sudden onset of generalized weakness, altered mental status and vomiting which resolved after 5 mins 1. TIA- initial workup is negative. Carotid doppler initially showing 65-79% stenosis and CTA now negative. rest of workup remains negative. no events noted on cardiac monitoring. started on asa and high intensity statin. counseled patient and in detail about follow up. should follow with neurology for further testing if all negative should see for extended holter monitor or loop recorder to look for arrhythmias. verbalized understanding and agreement with plan.
--- NOTE | 2018-09-13 16:32 | DS ---
Physical Exam: SUBJECTIVE: Patient seen and examined. Pt. denies any complaints today. No fevers overnight. OBJECTIVE: Vital Signs Period Temp Pulse Resp BP Sys/[place]ornejo Pulse Ox Last 24 Hr 97.9 F-98.2 F 79-84 16-18 110-142/68-83 97-100 PHYSICAL EXAM GENERAL: The patient is awake, alert, and fully oriented, in no acute distress. HEAD: Normal with no signs of trauma. EYES: PERRL, extraocular movements intact, sclera anicteric, conjunctiva clear. ENT: Ears normal, nares patent, oropharynx clear without exudates, moist mucous membranes. NECK: Trachea midline, full range of motion, supple. LUNGS: Breath sounds equal, clear to auscultation bilaterally, no wheezes, no crackles, no accessory muscle use. HEART: Regular rate and rhythm, S1, S2 without murmur ABDOMEN: Soft, nontender, nondistended, normoactive bowel sounds, no guarding, no rebound, no hepatosplenomegaly, no masses. EXTREMITIES: 2+ dorsal pedal pulses, warm, well-perfused, no edema. NEUROLOGICAL: Cranial nerves II through XII grossly intact. Normal speech, Normal gait. PSYCH: Normal mood, normal affect. SKIN: Warm, dry, normal turgor, no rashes or lesions noted. LABS Laboratory Results - last 24 hr 09/12/18 09/12/18 09/12/18 19:07 19:07 19:07 WBC 10.1 H RBC 4.29 Hgb 13.6 Hct 39.4 MCV 91.8 MCH 31.8 MCHC 34.7 RDW 13.2 Plt Count 295 MPV 8.9 Absolute Neuts (auto) 5.9 Neutrophils % 58.8 Lymphocytes % 31.3 Monocytes % 8.5 Eosinophils % 0.8 Basophils % 0.6 Nucleated RBC % 0 PT with INR 11.80 INR 1.00 Sodium 136 Potassium 4.2 Chloride 108 H Carbon Dioxide 25 Anion Gap 4 L BUN 15 Creatinine 0.8 Creat Clearance w eGFR 75.62 POC Glucometer Random Glucose 88 Calcium 9.2 Phosphorus Magnesium Total Bilirubin 0.3 AST 13 L ALT 27 Alkaline Phosphatase 72 Creatine Kinase 64 Troponin I < 0.02 Total Protein 7.1 Albumin 3.7 Triglycerides 158 H Cholesterol 248 H Total LDL Cholesterol 157 H HDL Cholesterol 73 H Serum , Qual Urine Color Urine Appearance Urine pH Ur Specific [place] Urine Protein Urine Glucose (UA) Urine Ketones Urine Blood Urine Nitrite Urine Bilirubin Urine Urobilinogen Ur Leukocyte Esterase Urine WBC (Auto) Urine RBC (Auto) Urine Casts (Auto) U Epithel Cells (Auto) Urine Bacteria (Auto) Urine HCG, Qual Blood Type Antibody Screen 09/12/18 09/12/18 09/12/18 19:07 19:26 19:54 WBC RBC Hgb Hct MCV MCH MCHC RDW Plt Count MPV Absolute Neuts (auto) Neutrophils % Lymphocytes % Monocytes % Eosinophils % Basophils % Nucleated RBC % PT with INR INR Sodium Potassium Chloride Carbon Dioxide Anion Gap BUN Creatinine Creat Clearance w eGFR POC Glucometer 93 Random Glucose Calcium Phosphorus Magnesium Total Bilirubin AST ALT Alkaline Phosphatase Creatine Kinase Troponin I Total Protein Albumin Triglycerides Cholesterol Total LDL Cholesterol HDL Cholesterol Serum , Qual Negative Urine Color Urine Appearance Urine pH Ur Specific [place] Urine Protein Urine Glucose (UA) Urine Ketones Urine Blood Urine Nitrite Urine Bilirubin Urine Urobilinogen Ur Leukocyte Esterase Urine WBC (Auto) Urine RBC (Auto) Urine Casts (Auto) U Epithel Cells (Auto) Urine Bacteria (Auto) Urine HCG, Qual Blood Type Cancelled Antibody Screen Cancelled 09/12/18 09/13/18 09/13/18 21:00 07:05 07:05 WBC 8.1 RBC 4.02 Hgb 12.7 Hct 36.9 MCV 91.8 MCH 31.5 MCHC 34.3 RDW 13.0 Plt Count 262 MPV 8.6 Absolute Neuts (auto) Neutrophils % Lymphocytes % Monocytes % Eosinophils % Basophils % Nucleated RBC % PT with INR INR Sodium 138 Potassium 4.5 Chloride 112 H Carbon Dioxide 24 Anion Gap 3 L BUN 15 Creatinine 0.7 Creat Clearance w eGFR 88.22 POC Glucometer Random Glucose 94 Calcium 8.9 Phosphorus 3.1 Magnesium 2.1 Total Bilirubin AST ALT Alkaline Phosphatase Creatine Kinase Troponin I < 0.02 Total Protein Albumin Triglycerides Cholesterol Total LDL Cholesterol HDL Cholesterol Serum , Qual Urine Color Yellow Urine Appearance Clear Urine pH 7.0 Ur Specific [place] 1.005 L Urine Protein Negative Urine Glucose (UA) Negative Urine Ketones Negative Urine Blood Negative Urine Nitrite Negative Urine Bilirubin Negative Urine Urobilinogen 0.2 Ur Leukocyte Esterase Trace Urine WBC (Auto) 0 Urine RBC (Auto) 3 Urine Casts (Auto) 0 U Epithel Cells (Auto) 1.2 Urine Bacteria (Auto) 46.7 Urine HCG, Qual Negative Blood Type Antibody Screen HOSPITAL COURSE: Date of Admission:09/12/18 Date of Discharge: 09/13/18 Pt. is a 52 y.o. F w/ PMHx. of Asthma, depression, HLD, and childhood seizures admitted for dizziness, nausea, visual field deficit, and verbal dysphagia that resolved prior to ED arrival. Workup for CVA including MRI, Head CT, and CT angiogram of the neck was negative for acute pathlogy. Echocardiogram was negative for acute pathology. Consults to Neurology and Cardiology appreciated. Pt. started on Atorvastatin 40mg Daily and referred for outpatient management as detailed below. Hospital course discussed and agreed upon by Pt. and hospital staff. Discharge Summary Reason For Visit: TRANSIENT ISCHEMIC ATTACK Current Active Problems TIA (transient ischemic attack) (Acute) Condition: Stable - Instructions Diet, Activity, Other Instructions: You came in because you were experiencing dizziness We monitored you overnight and imaged your brain. We did not find any evidence of anything immediately concerning. We did lab tests to show that you have high cholesterol. Please eat more vegetables and fruits and less foods that contain high amounts of oils, fats or processed sugars. We started you on new medications, Lipitor (Atorvastatin) 40mg ONCE per Night and Aspirin 81mg ONCE per day. Please take these medications as prescribed. Please resume your home medications as prescribed. Please recheck your cholesterol (lipid panel) in 3 months Please follow up with your Primary Care Physician within 1 week. If you do not have a PCP we have provided one for you, Dr. Huffman. Please discuss wearing a Holter monitor (heart monitor) with your primary care physician. Please follow up with your Neurologist, Dr. Casanova, within 1 week for further testing and to review your Brain imaging reports. Please return to the ED if you are experiencing chest pain, shortness of breath , sudden changes in vision, headaches that won't go away, slurred speech, facial droop, worsening muscle aches, red urine, increased frequency of urination or any concerning symptoms. Referrals: Geovani Huffman MD [Staff Physician] - Cory Casanvoa MD [Staff Physician] - Disposition: HOME - Home Medications Comprehensive Discharge Medication List: Ambulatory Orders Acyclovir [Zovirax -] 1 tab PO TID PRN MDD for one week 09/13/18 Albuterol Sulfate [Proair Hfa] 1 - 2 puff PO Q6H PRN 09/13/18 Aspirin [ASA -] 81 mg PO DAILY #30 tab.chew 09/13/18 Atorvastatin Calcium 40 mg PO HS #30 tablet 09/13/18 Bupropion HBr [Aplenzin] 1 tab PO DAILY 09/13/18 Cetirizine HCl [Zyrtec -] 10 mg PO DAILY PRN 09/13/18 Fluoxetine HCl [Prozac] 1 tab PO DAILY 09/13/18 Fluoxetine HCl [Prozac] 1 tab PO DAILY 09/13/18 Fluticasone Propionate [24 Hour Allergy] 1 spray IH DAILY 09/13/18 Omeprazole 2 tab PO DAILY 09/13/18
[2018-09-13] MEDS ORDERED: ATORVASTATIN CA 20 MG TABLET (FP) PO SCH ×2 (22:00)
[2018-09-13] MEDS ORDERED: ATORVASTATIN CA 80 MG TABLET (FP) PO SCH (22:00)
[2018-09-14] MEDS ORDERED: ASPIRIN 81 MG CHEWABLE TABLETS PO SCH (10:00)
== END 2018-09-13 18:25 | disposition home or self-care (01) ==
LOC: JER 18:49 → JERBED 22:12 → INTOOBSV 22:12 → J4S 09-13 05:27
PROVIDERS: ADMIT Internal Medicine; ATTEND Internal Medicine
PROC: 3E0337Z Introduction of Electrolytic and Water Balance Substance into Peripheral Vein, Percutaneous Approach (ICD-10-PCS; principal; 2018-09-12)
DX: G45.9 Transient cerebral ischemic attack, unspecified (principal); E78.5 Hyperlipidemia, unspecified; J45.909 Unspecified asthma, uncomplicated; F32.9 Major depressive disorder, single episode, unspecified; I65.29 Occlusion and stenosis of unspecified carotid artery; Z86.69 Personal history of other diseases of the nervous system and sense organs
CPT/HCPCS: 36415; 70450-TC; 70498-TC; 70551-TC; 71045-TC-FY; 80048; 80053; 80061; 81003; 82550; 82962; 83721; 83735; 84100; 84484; 84703; 85025; 85027; 85610; 93005; 93010; 93306-TC; 93880-TC; 99285-25; G0378; J7030